=== PATIENT | female | born 1990 | race Caucasian/White ===

== ENCOUNTER 2022-02-22 08:46 | Outpatient (CLI) | payer BC, SELFPAY | END 2022-02-22 08:47 | disposition home or self-care (01) | LOC: NFLDREF 08:46 | PROVIDERS: Visit Provider Registered Nurse | DX: Z01.419 Encounter for gynecological examination (general) (routine) without abnormal findings (principal); Z12.4 Encounter for screening for malignant neoplasm of cervix; Z13.1 Encounter for screening for diabetes mellitus; Z13.6 Encounter for screening for cardiovascular disorders | CPT/HCPCS: 87624; 88175 ==

== ENCOUNTER 2023-03-28 10:39 | Emergency (ER) | payer OTHER, BC, SELFPAY ==
[2023-03-28] VITALS (15 sets, daily range): BP systolic 105–117; BP diastolic 66–77; PULSE 61–69; RESP 18; TEMP 36.8; O2SAT 99–100; BMI 21.5
--- NOTE | 2023-03-28 11:17 | CRLHL7_ITS ---
For Patients: As a result of the Cures Act, medical imaging exams and procedure reports are released immediately into your electronic medical record. You may view this report before your referring provider. If you have questions, please contact your health care provider. INDICATION: Injury COMPARISON: None TECHNIQUE: CT examination of the cervical spine is performed without contrast using spiral technique. Thin axial, sagittal and coronal reconstructions were made. Please note that all CT scans at this facility use dose modulation, iterative reconstruction, and/or weight-based dosing when appropriate to reduce radiation dose to as low as reasonably achievable. FINDINGS: : There is straightening which is usually due to muscle spasm, positioning or immobilization device. Minor degenerative changes. No evidence for acute fracture, dislocation or destructive process. IMPRESSION: No visible acute fracture, dislocation or destructive process. Mild straightening. Please note that all CT scans at this facility use dose modulation, iterative reconstruction, and/or weight-based dosing when appropriate to reduce radiation dose to as low as reasonably achievable. Dictated by Dominick Nelson MD @ 03/28/2023 1:06:36 PM (Electronically Signed)
--- NOTE | 2023-03-28 11:17 | CRLHL7_ITS ---
For Patients: As a result of the Century Cures Act, medical imaging exams and procedure reports are released immediately into your electronic medical record. You may view this report before your referring provider. If you have questions, please contact your health care provider. INDICATION: Injury COMPARISON: None TECHNIQUE: CT examination of the head was performed as axial sections without intravenous contrast. Images were obtained from the vertex of the skull through the skull base. Please note that all CT scans at this facility use dose modulation, iterative reconstruction, and/or weight-based dosing when appropriate to reduce radiation dose to as low as reasonably achievable. FINDINGS: The brain shows no sign of mass lesion, mass effect, hemorrhage, or edema. The ventricles and sulci are normal in appearance for the patient`s age. The visualized portions of the orbits are normal in appearance. The osseous structures are normal in their appearance with no sign of abnormality in the skull base or calvarium. IMPRESSION: No acute intracranial posttraumatic findings. Please note that all CT scans at this facility use dose modulation, iterative reconstruction, and/or weight-based dosing when appropriate to reduce radiation dose to as low as reasonably achievable. Dictated by Dominick Nelson MD @ 03/28/2023 1:03:38 PM (Electronically Signed)
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
--- NOTE | 2023-03-28 11:51 | ED.NURSE ---
Patient to CT
[2023-03-28 11:57] LABS: Basophils Absolute Auto 0.03 K/uL (0.00-0.30); Basophils Percent Auto 0.3 % (0.0-3.0); Eosinophils Absolute Auto 0.19 K/uL (0.00-0.50); Eosinophils Percent Auto 1.8 % (0.0-7.0); Hematocrit 39.1 % (33.0-51.0); Hemoglobin* 12.6 gm/dL (12.0-16.0); Immature Granulocytes Abs Auto 0.01 K/uL (0.00-0.30); Immature Granulocytes Pct Auto 0.1 %; Lymphocytes Percent Auto 16.5 % (20-44); Mean Corpuscular HGB Conc 32 gm/dL (32-36); Mean Corpuscular Hemoglobin 30 pg (26-34); Mean Corpuscular Volume 92 fL (80-100); Monocytes Percent Auto 6.3 % (0.0-11.0); Platelet Count* 235 K/uL (140-440); RDW Coefficient of Variation % 12.6 % (11.5-15.5); Red Blood Count 4.23 m/uL (4.00-5.20); White Blood Count* 10.37 K/uL (4.50-11.00)
[2023-03-28 11:59] LABS: Appearance Urine Clear (Clear); Bilirubin Urine Negative (Negative); Blood Urine Negative (Negative); Color Urine Yellow (Yellow); Glucose Urine Negative (Negative); Ketones Urine Negative (Negative); Leukocyte Esterase Urine Trace (Negative); Nitrite Urine Negative (Negative); Protein Urine Negative (Negative); Specific Gravity Urine 1.015 (1.000-1.030); Urobilinogen Urine 0.2 (0.2-1.0); pH Urine 7.5 (5.0-8.5)
[2023-03-28 12:00] LABS: Ur HCG Qualitative* Negative (Negative)
[2023-03-28 12:02] LABS: Slide Review Reflex No
[2023-03-28 12:08] LABS: RBC Urine 0-2 (0-2); WBC Urine 0-2 (0-5)
[2023-03-28 12:09] LABS: Albumin* 4.5 g/dL (3.3-5.0); Chloride* 100 mmol/L (96-114); Squamous Epithelial Cell Urine Few (None-Few)
[2023-03-28 12:10] LABS: Sodium* 136 mmol/L (135-149)
[2023-03-28 12:12] LABS: Amylase* 70 U/L (18-89); Anion Gap 7 mEq/L (7-15); Bilirubin Total* 0.2 mg/dL (0.1-1.5); Blood Urea Nitrogen* 10 mg/dL (5-24); Carbon Dioxide* 29 mmol/L (20-32); Creatinine* 0.8 mg/dL (0.5-1.5); Est. Creatinine Clearance* 108.44; Estimated Glomerular Filt Rate 100 ml/min; Total Protein* 7.8 g/dL (6.0-8.3)
[2023-03-28 12:13] LABS: Alanine Aminotransferase* 28 U/L (4-35); Alkaline Phosphatase* 56 U/L (40-150); Aspartate Amino Transferase* 41 U/L (12-35); Calcium* 9.1 mg/dL (8.4-10.6); Glucose* 88 mg/dL (60-115)
[2023-03-28] MEDS: ACETAMINOPHEN 500 MG TABLET 1000 MG PO (14:22)
[2023-03-29 19:41] LABS: Keppra (Levetiracetam) 47 ug/mL (10-40); Lamotrigine 15.6 ug/mL (3.0-15.0)
== END 2023-03-28 14:35 | disposition home or self-care (01) ==
PROVIDERS: Emergency Provider Family Medicine
DX: S06.9X9A Unspecified intracranial injury with loss of consciousness of unspecified duration, initial encounter (principal); G40.909 Epilepsy, unspecified, not intractable, without status epilepticus; M54.2 Cervicalgia; R51.9 Headache, unspecified; V48.5XXA Car driver injured in noncollision transport accident in traffic accident, initial encounter; W22.10XA Striking against or struck by unspecified automobile airbag, initial encounter
CPT/HCPCS: 36415; 70450; 72125; 80048; 80076; 80175; 80177; 81001; 81025; 82150; 83690; 84484; 85025; 93005; 99284; 99285; A9270